=== PATIENT | female | born 1995 | race Hispanic/Latino ===

== ENCOUNTER 2022-04-13 12:41 | Emergency (ER) | payer OTHER ==
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
--- NOTE | 2022-04-13 14:54 | RAD REPORT ---
EXAM DESCRIPTION: RAD - Lumbar Spine 3 Views - 04/13/2022 2:18 pm CLINICAL HISTORY: Back pain FINDINGS: No fracture or dislocation is seen.
--- NOTE | 2022-04-13 14:55 | RAD REPORT ---
EXAM DESCRIPTION: RAD - Shoulder Left 2 View - 04/13/2022 2:18 pm CLINICAL HISTORY: Left shoulder pain FINDINGS: No fracture or dislocation is seen. If the patient continues to have symptoms to suggest an occult fracture follow-up plain film series in 1 week would be recommended
--- NOTE | 2022-04-13 15:05 | ER ---
Nurse's Notes [facility] Name: Rosy David Age: 26 yrs Sex: Female : 1995 Arrival Date: 04/13/2022 Time: 12:43 Bed Waiting Private MD: Diagnosis: Pain in left shoulder;Pain in left hip;Low back pain Presentation: 04/13 13:39 Chief complaint: Patient states: hip/back pain happened yesterday , hurts to walk. iw Coronavirus screen: At this time, the client does not indicate any symptoms associated with coronavirus-19. Ebola Screen: Patient negative for fever greater than or equal to 101.5 degrees Fahrenheit, and additional compatible Ebola Virus Disease symptoms Patient denies exposure to infectious person. Patient denies travel to an Ebola-affected area in the 21 days before illness onset. No symptoms or risks identified at this time. Initial Sepsis Screen: Does the patient meet any 2 criteria? No. Patient's initial sepsis screen is negative. Does the patient have a suspected source of infection? No. Patient's initial sepsis screen is negative. Risk Assessment: Do you want to hurt yourself or someone else? Patient reports no desire to harm self or others. 13:39 Acuity: LUCY 4 iw 13:39 Method Of Arrival: Ambulatory Vital Signs: 13:20 BP 96 / 79; Pulse 91; Resp 16; Temp 98.4; Pulse Ox 100% ; Weight 74.39 kg; Height 5 ft. zm 1 in. (154.94 cm); Pain 7/10; 13:20 Body Mass Index 30.99 (74.39 kg, 154.94 cm) ED Course: 12:43 Patient arrived in ED. mr 13:18 Amy Hernández FNP-C is PHCP. kb 13:18 Lenny Yanez MD is Attending Physician. kb 13:40 Triage completed. iw 14:20 Hip Left 2 View XRAY In Process Unspecified. EDMS 14:20 Shoulder Left (2 View) XRAY In Process Unspecified. EDMS 14:20 Lumbar Spine (3 Views) XRAY In Process Unspecified. EDMS Administered Medications: No medications were administered Outcome: 15:04 Discharge ordered by . kb 15:21 Patient left the ED. kb Signatures: Dispatcher [employer] EDMS Amy Hernández FNP-C PACKAGING LINE ATTENDANT-Ckb Sarah Fung Irene, RN RN Linsey Shoemaker
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
[2022-04-13 15:28] VITALS: BP 96/79; TEMP 98.4; O2SAT 100
== END 2022-04-13 15:21 | disposition home or self-care (01) ==
LOC: ER 12:41
DX: M25.512 Pain in left shoulder (principal); M25.552 Pain in left hip; M54.50 Low back pain, unspecified
CPT/HCPCS: 72100; 99282

== ENCOUNTER 2022-08-09 09:05 | Emergency (ER) | payer BC, OTHER ==
--- OUTSIDE RECORDS SUMMARY | 2022-08-09 09:09 | XMS REPORT | Continuity of Care Document ---
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 code 2+ NEGATIVE A = VICTORINA) UA PH DIPSTICK (test code = 7.5 5.5-7.0 H [place]) UA PROTEIN DIPSTICK (test NEGATIVE mg/dL NEGATIVE code = PROU) UA UROBILINOGEN DIPSTICK 2.0 mg/dL NORMAL (test code = URO) UA NITRITE DIPSTICK (test NEGATIVE NEGATIVE code = ALEXX) UA LEUKOCYTE ESTERASE NEGATIVE NEGATIVE DIPSTICK (test code = LEUU) UA COMMENT (test code = COMU) VOLUME 10-12 ML URINE SPECIMEN DESCRIPTION Clean Catch (test code = UASPEC) UA [id number] 01:27:00 Test Item Value Reference Range Interpretation Comments UA WBC (test code = WBCU) #/hpf <10 UA RBC (test code = RBCU) #/HPF NONE SEEN UA SQUAMOUS CELLS (test code = SQU) #/lpf <100 UA RFLX [id number] 01:27:00 Test Item Value Reference Range Interpretation Comments UA COLOR (test code = COLU) Yellow YELLOW UA APPEARANCE (test code = CLEAR APPU) UA GLUCOSE DIPSTICK (test NORMAL mg/dL NEGATIVE code = DGLUU) UA BILIRUBIN DIPSTICK (test NEGATIVE NEGATIVE code = BILU) UA KETONE DIPSTICK (test code NEGATIVE mg/dL NEGATIVE = KETU) UA SPECIFIC GRAVITY (test 1.016 1.001-1.035 N code = SGU) UA BLOOD DIPSTICK (test code 2+ NEGATIVE A = VICTORINA) UA PH DIPSTICK (test code = 7.5 5.5-7.0 H [place]) UA PROTEIN DIPSTICK (test NEGATIVE mg/dL NEGATIVE code = PROU) UA UROBILINOGEN DIPSTICK 2.0 mg/dL NORMAL (test code = URO) UA NITRITE DIPSTICK (test NEGATIVE NEGATIVE code = ALEXX) UA LEUKOCYTE ESTERASE NEGATIVE NEGATIVE DIPSTICK (test code = LEUU) UA COMMENT (test code = COMU) VOLUME 10-12 ML URINE SPECIMEN DESCRIPTION Clean Catch (test code = UASPEC) UA [id number] 01:27:00 Test Item Value Reference Range Interpretation Comments UA WBC (test code = WBCU) #/hpf <10 UA RBC (test code = RBCU) #/HPF NONE SEEN UA SQUAMOUS CELLS (test code = SQU) #/lpf <100 CBC W/AUTO [id number] 00:59:00 Test Item Value Reference Range Interpretation Comments WHITE BLOOD CELL (test code = 9.77 x10 3/uL 4.80-10.80 N WBC) RED BLOOD CELL (test code = 3.85 x10 6/uL 4.2-5.4 L RBC) HEMOGLOBIN (test code = HGB) 12.8 G/DL 12.0-16.0 N HEMATOCRIT (test code = HCT) 35.8 % 37-47 L MEAN CELL VOLUME (test code = 93.0 FL 81-99 N MCV) MEAN CELL HGB (test code = MCH) 33.2 PG 27-31 H MEAN CELL HGB CONCENTRATION 35.8 G/DL 33-37 N (test code = MCHC) RED CELL DISTRIBUTION WIDTH 12.8 % 11.5-14.5 N (test code = RDW) PLATELET COUNT (test code = 260 x10 3/uL 150-450 N PLT) MEAN PLATELET VOLUME (test code 9.8 FL 7.4-10.4 N = MPV) NEUTROPHIL % (test code = NT%) 63.0 % 42-86 N IMMATURE GRANULOCYTE % (test 0.3 % 0.0-2.0 N code = IG%) LYMPHOCYTE % (test code = LY%) 26.1 % 24-44 N MONOCYTE % (test code = MO%) 9.3 % 0.0-4.0 H EOSINOPHIL % (test code = EO%) 0.9 % 0.0-2.7 N BASOPHIL % (test code = BA%) 0.4 % 0.0-0.5 N NUCLEATED RBC % (test code = 0.0 % 0.0-0.0 N NRBC%) NEUTROPHIL # (test code = NT#) 6.15 x10 3/uL 1.8-7.7 N IMMATURE GRANULOCYTE # (test 0.03 x10 3/uL 0.00-0.03 N code = IG#) LYMPHOCYTE # (test code = LY#) 2.55 x10 3/uL 1.0-4.8 N MONOCYTE # (test code = MO#) 0.91 x10 3/uL 0.0-0.8 H EOSINOPHIL # (test code = EO#) 0.09 x10 3/uL 0.0-0.5 N BASOPHIL # (test code = BA#) 0.04 x10 3/uL 0.0-0.2 N NUCLEATED RBC # (test code = 0.0 X10 3/uL 0.0-0.2 N NRBC#)
[2022-08-09] MEDS ORDERED: KETOROLAC 30 MG/ML INJ ONE (09:40)
--- NOTE | 2022-08-09 09:55 | ER ---
Nurse's Notes [facility] Name: Rosy David Age: 26 yrs Sex: Female : 1995 Arrival Date: 08/09/2022 Time: 09:11 Bed 12 Private MD: Diagnosis: Dental caries, unspecified Presentation: 08/09 09:31 Chief complaint: Patient states: right ear pain x2 weeks with accompanying tooth pain ss on both sides of the mouth. Coronavirus screen: Vaccine status: Patient reports being unvaccinated. Client denies travel out of the [place] in the last 14 days. Ebola Screen: Patient negative for fever greater than or equal to 101.5 degrees Fahrenheit, and additional compatible Ebola Virus Disease symptoms Patient denies exposure to infectious person. Patient denies travel to an Ebola-affected area in the 21 days before illness onset. Initial Sepsis Screen: Does the patient meet any 2 criteria? No. Patient's initial sepsis screen is negative. Does the patient have a suspected source of infection? No. Patient's initial sepsis screen is negative. Risk Assessment: Do you want to hurt yourself or someone else? Patient reports no desire to harm self or others. Onset of symptoms was June 2022. 09:31 Method Of Arrival: Ambulatory ss 09:31 Acuity: LUCY 4 ss Triage Assessment: 09:35 General: Appears uncomfortable, Behavior is calm, cooperative, appropriate for age. ss Pain: Complains of pain in face. EENT: Reports pain. 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 - Social history:: Smoking status: Patient denies any tobacco usage or history of. - Family history:: not pertinent. - Hospitalizations: : No recent hospitalization is reported. Screenin:14 Abuse screen: Denies threats or abuse. Denies injuries from another. Nutritional ld1 screening: No deficits noted. Tuberculosis screening: No symptoms or risk factors identified. Fall Risk None identified. Assessment: 10:14 Reassessment: See triage assessment. ld1 Vital Signs: 09:31 BP 126 / 77; Pulse 86; Resp 16; Temp 98.6; Pulse Ox 99% ; Weight 74.84 kg; Height 5 ft. ss 1 in. (154.94 cm); Pain 4/10; 09:31 Body Mass Index 31.18 (74.84 kg, 154.94 cm) ED Course: 09:11 Patient arrived in ED. mr 09:19 Po Owens MD is Attending Physician. rn 09:35 Triage completed. ss 09:35 Arm band placed on right wrist. ss 10:14 Clarissa Matamoros, RN is Primary Nurse. ld1 10:14 Patient has correct armband on for positive identification. Call light in reach. Pulse ld1 ox on. NIBP on. Door closed. Noise minimized. Warm blanket given. 10:14 No provider procedures requiring assistance completed. Patient did not have IV access ld1 during this emergency room visit. Administered Medications: 09:42 Drug: Ketorolac 30 mg Route: IM; Site: right deltoid; jh5 Medication: 10:14 VIS not applicable for this client. ld1 Outcome: 09:55 Discharge ordered by . rn 10:14 Discharged to home ambulatory. ld1 10:14 Condition: stable 10:14 Discharge instructions given to patient, Instructed on discharge instructions, follow up and referral plans. medication usage, Demonstrated understanding of instructions, follow-up care, medications, Prescriptions given X 2. 10:15 Patient left the ED. ld1 Signatures: Sarah Fung Po Owens MD MD rn Smirch, Shelby, RN RN Clarissa Matamoros RN RN ld1 Nevaeh Farmer RN RN jh5
--- NOTE | 2022-08-09 09:55 | EDPHYS ---
Physician Documentation [facility] Name: Rosy David Age: 26 yrs Sex: Female : 1995 Arrival Date: 08/09/2022 Time: 09:11 Bed 12 Private MD: ED Physician Po Owens HPI: 08/09 09:41 This 26 yrs old Female presents to ER via Ambulatory with complaints of Ear rn Pain. 09:41 The patient presents with pain. The problem is located in the dental pain. Onset: The rn symptoms/episode began/occurred 2 week(s) ago. Duration: The symptoms are continuous, and are unchanged since they started. Modifying factors: The symptoms are alleviated by nothing, the symptoms are aggravated by nothing. Associated signs and symptoms: Pertinent positives: pain, Pertinent negatives: dysphagia, fever, redness in area, swelling. Severity of symptoms: At their worst the symptoms were moderate, in the emergency department the symptoms are unchanged. The patient has experienced similar episodes in the past. The patient has not recently seen a physician. No injury, + dental pain, no swelling, no difficulty breathing or swallowing. . 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 - Social history:: Smoking status: Patient denies any tobacco usage or history of. - Family history:: not pertinent. - Hospitalizations: : No recent hospitalization is reported. ROS: 09:41 Constitutional: Negative for fever, chills, and weight loss, Eyes: Negative for injury, rn pain, redness, and discharge, ENT: + dental pain Cardiovascular: Negative for chest pain, palpitations, and edema, Respiratory: Negative for shortness of breath, cough, wheezing, and pleuritic chest pain, Abdomen/GI: Negative for abdominal pain, nausea, vomiting, diarrhea, and constipation, Skin: Negative for injury, rash, and discoloration, Neuro: Negative for headache, weakness, numbness, tingling, and seizure. Exam: 09:41 Constitutional: This is a well developed, well nourished patient who is awake, alert, rn and in no acute distress. Head/Face: Normocephalic, atraumatic. ENT: + poor dentition, no oral swelling, no stridor, no abscess Neck: Trachea midline, no thyromegaly or masses palpated, and no cervical lymphadenopathy. Supple, full range of motion without nuchal rigidity, or vertebral point tenderness. No Meningismus. Cardiovascular: Regular rate and rhythm. No pulse deficits. Respiratory: No increased work of breathing, no retractions or nasal flaring. Vital Signs: 09:31 BP 126 / 77; Pulse 86; Resp 16; Temp 98.6; Pulse Ox 99% ; Weight 74.84 kg; Height 5 ft. ss 1 in. (154.94 cm); Pain 4/10; 09:31 Body Mass Index 31.18 (74.84 kg, 154.94 cm) ss MDM: 09:19 Patient medically screened. rn 09:41 Differential diagnosis: dental caries, gingivitis. Data reviewed: vital signs, nurses rn notes, and as a result, I will discharge patient. Counseling: I had a detailed discussion with the patient and/or guardian regarding: the historical points, exam findings, and any diagnostic results supporting the discharge/admit diagnosis, the need for outpatient follow up, to return to the emergency department if symptoms worsen or persist or if there are any questions or concerns that arise at home. Special discussion: I discussed with the patient/guardian in detail that at this point there is no indication for admission to the hospital. It is understood, however, that if the symptoms persist or worsen the patient needs to return immediately for re-evaluation. Based on the history and exam findings, there is no indication for further emergent testing or inpatient evaluation. I discussed with the patient/guardian the need to see a dentist for further evaluation of the symptoms. 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
[2022-08-09 10:35] VITALS: BP 126/77; TEMP 98.6; O2SAT 99
== END 2022-08-09 10:15 | disposition home or self-care (01) ==
LOC: ER 09:05
DX: K02.9 Dental caries, unspecified (principal)
CPT/HCPCS: 96372; 99283

== ENCOUNTER 2024-11-29 19:35 | Emergency (ER) | payer SELFPAY ==
--- OUTSIDE RECORDS SUMMARY | 2024-11-29 19:39 | XMS REPORT | Continuity of Care Document ---
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 Focused Review of Systems Skin Reports: Abrasion (LEFT 3RD MCP). Past Medical History - Adult Stated Complaint LEFT HAND INJURY Allergies Coded Allergies: No Known Allergies (11/25/19) Home Medications Active Scripts NAPROXEN (NAPROSYN) 500 MG PO BID PRN PRN PAIN NAPROXEN (NAPROSYN) 500 MG PO BID PRN PRN PAIN #20 TABS Prov: 10/18/20 OSELTAMIVIR (TAMIFLU) 75 MG PO BID OSELTAMIVIR (TAMIFLU) 75 MG PO BID #10 CAPS Prov: 09/01/21 ACETAMINOPHEN (TYLENOL) 500 MG PO Q6H PRN PRN fever ACETAMINOPHEN (TYLENOL) 500 MG PO Q6H PRN PRN fever #20 TABS Prov: 09/01/21 IBUPROFEN (ADVIL) 400 MG PO Q6H 5 Days #20 TABS Prov: 09/01/21 HYDROcodone/APAP (NORCO 7.5/325) 1 TAB PO Q6H PRN PRN BREAKTHROUGH PAIN HYDROcodone/APAP (NORCO 7.5/325) 1 TAB PO Q6H PRN PRN BREAKTHROUGH PAIN #14 TAB Prov: 11/25/19 IBUPROFEN (MOTRIN) 600 MG PO Q6HR IBUPROFEN (MOTRIN) 600 MG PO Q6HR #30 TAB Prov: 11/25/19 Reported Medications [pnv] Review of Nursing Notes Rev avail, and agree Additional Medical History RA CHRONIC CONSTIPATION Alcohol Use Alcohol use Drug Use Denies recreational drugs Physical Exam Vital Signs Vital Signs First Documented: Result Date Time Pulse Ox 99 10/27 2155 B/P 123/73 10/27 2155 B/P Mean 89 10/27 2155 O2 Delivery Room air 10/27 2155 Temp 98.9 10/27 2155 Pulse 102 10/27 2155 Resp 18 10/27 2155 Last Documented: Result Date Time Pulse Ox 99 10/27 2155 B/P 123/73 10/27 2155 B/P Mean 89 10/27 2155 O2 Delivery Room air 10/27 2155 Temp 98.9 10/27 2155 Pulse 102 10/27 2155 Resp 18 10/27 2155 Review of Vital Signs Reviewed, Vital signs normal Focused PE General/Const General/Const Awake, Alert, No acute distress, Well appearing, Well developed , Well hydrated, Well nourished, Cooperative, Not toxic appearing MS Wrist/Hand Left Wrist Swelling present, Tenderness present, Ecchymosis present. Left Hand Swelling present, Tenderness present, Ecchymosis present, ROM reduced (MILD). Skin Trauma/Burn/Environmental Abrasion (LEFT 3RD MCPJ), Contusion, Ecchymosis ( LEFT 2/3/4 MCP JOINTS) Neurologic Neurologic Oriented X3, Speech NL, No motor deficits, No sensory deficits, Memory NL, Gait NL Additional PE Resp/Chest Respiratory/Chest Atraumatic, Breath sounds NL, Breath sounds = bilat, No respiratory distress Chest Wall/Ribs Chest tender upper R (RIGHT UPPER LATERAL). Cardiovascular Cardiovascular Heart rate NL, Regular rhythm, Heart sounds NL MS Upper Extrem Upper Extremity/MS Atraumatic, Inspection NL, Full range of motion, No swelling, No deformity Interpretation Diagnostics Lab Results Interpretation Results Recent Impressions: RADIOLOGY - XR CHEST 1 V 10/27 2237 Report Impression - Status: SIGNED Entered: 10/27/20212257 IMPRESSION: No evidence of acute cardiopulmonary disease. Impression By: Clarita Givens MD RADIOLOGY - XR HAND 3+V LT 10/27 2237 Report Impression - Status: SIGNED Entered: 10/27/20212301 Impression: Unremarkable exam. Impression By: Luz Elena Burroughs MD RADIOLOGY - XR WRIST 3+V LT 10/27 2237 Report Impression - Status: SIGNED Entered: 10/27/20212299 IMPRESSION: No evidence of acute osseous abnormality or joint derangement. The lateral radiograph of the hand demonstrates a superficial hyperdensity within the dorsal soft tissues at the level of the metacarpal phalangeal joint which may represent an artifact. Correlate to exclude a foreign body. Impression By: Clarita Givens MD Lab Imaging Statement Laboratory radiographic studies reviewed and considered in the medical decision-making. Re-Evaluation MDM ED Course Medication(s) Ordered Medication(s) Ordered: Central Nervous System Agents Sig/Fernando Start time Last Medication Dose Route Stop Time Status Admin Ibuprofen 600 MG X1ED STA 10/27 2155 DC 10/27 PO 10/27 Patient Discharge Departure Vital Signs/Condition Vital Signs First Documented: Result Date Time Pulse Ox 99 10/27 2155 B/P 123/73 10/27 2155 B/P Mean 89 10/27 2155 O2 Delivery Room air 10/27 2155 Temp 98.9 10/27 2155 Pulse 102 10/27 2155 Resp 18 10/27 2155 Last Documented: Result Date Time Pulse Ox 99 10/27 2155 B/P 123/73 10/27 2155 B/P Mean 89 10/27 2155 O2 Delivery Room air 10/27 2155 Temp 98.9 10/27 2155 Pulse 102 10/27 2155 Resp 18 10/27 2155 All vital signs available at the time of this entry have been reviewed. Clinical Impression Clinical Impression Primary Impression: Contusion of left hand including fingers Secondary Impressions: Contusion of right shoulder, Left wrist sprain Disposition Decision Discharge )( Discharged to Home Yes )( Time 2307 )( Date 10/27/21 Discharge/Care Plan Counseled Regarding Diagnosis, Imaging studies, Need for follow-up, When to return to ED Patient Instructions ED Hand Contusion Additional Instructions Use ice and ibuprofen and Tylenol as needed for pain and swelling. X-rays did not show any fractures or dislocations. at 2309 RPT #:[id number] END OF REPORT [facility] 2021-09-01 18:11:00 [facility]Y PROVIDER REPORT REPORT#:[id number] REPORT STATUS: Signed DATE:09/01/21 TIME: 1810 PATIENT: ROSY BLACK UNIT #: [id number] ROOM/BED: AGE: 26 SEX: F PCP PHYS: No Primary or Family Physician SERVICE AUTHOR: Jacinto Bailey MD * ALL edits or amendments must be made on the electronic/computer document * HPI-Sore Throat Free Text HPI Notes Free Text HPI Notes 26-year-old female with no significant past medical history, none immunized with COVID-19 vaccine, presented today complaining of 24 hours of sore throat, dysphagia, dysphonia, fatigue, feeling tired, cough, runny nose, for which consulted to emergency department, the patient denies shortness of breath, denies loss of smell, denies loss of taste, denies diarrhea. The patient stated she does feel fever chills. General Confirmed Patient Yes Patient Type New patient Initial Greet Date/Time 09/01/21 1750 Presentation Chief Complaint Sore throat Review of Systems Free Text ROS Notes Free Text ROS Notes Constitutional: Positive for fever, chills HENT: Negative for ear pain, positive sore throat Eyes: Negative for pain and visual disturbance. Respiratory: Positive for cough, negative chest tightness and shortness of breath. Cardiovascular: Negative for chest pain, palpitations nor leg swelling. Gastrointestinal: Negative for nausea, vomiting, abdominal pain nor diarrhea. Endocrine: Negative for polydipsia nor polyuria. Genitourinary: Negative for dysuria nor hematuria. Musculoskeletal: Negative for back pain, neck pain, nor extremity pain. Skin: Negative for pallor, rash. Neurological: Negative for dizziness, seizures, weakness and headaches. Psychiatric/Behavioral: Negative for behavioral problems, confusion and agitation. No suicidal ideation, no homicidal ideation, no hallucinations, no delusions. Past Medical History - Adult Stated Complaint CHILLS,BAD COUGH,HEAD POUNDING,DIZZY SPELLS,ACHES Allergies Coded Allergies: No Known Allergies (11/25/19) Home Medications Active Scripts NAPROXEN (NAPROSYN) 500 MG PO BID PRN PRN PAIN NAPROXEN (NAPROSYN) 500 MG PO BID PRN PRN PAIN #20 TABS Prov: 10/18/20 HYDROcodone/APAP (NORCO 7.5/325) 1 TAB PO Q6H PRN PRN BREAKTHROUGH PAIN HYDROcodone/APAP (NORCO 7.5/325) 1 TAB PO Q6H PRN PRN BREAKTHROUGH PAIN #14 TAB Prov: 11/25/19 IBUPROFEN (MOTRIN) 600 MG PO Q6HR IBUPROFEN (MOTRIN) 600 MG PO Q6HR #30 TAB Prov: 11/25/19 Reported Medications [pnv] Additional Medical History RA CHRONIC CONSTIPATION Alcohol Use Alcohol use Drug Use Denies recreational drugs Physical Exam Vital Signs Vital Signs First Documented: Result Date Time Pulse Ox 99 / 1802 B/P 118/60 / 1802 B/P Mean 79 09/01 1802 Temp 100.6 / 1802 Pulse 108 / 1802 Last Documented: Result Date Time Pulse Ox 99 12/ 1802 B/P 118/60 / 1802 B/P Mean 79 / 1802 Temp 100.6 / 1802 Pulse 108 12/ 1802 Review of Vital Signs Reviewed Free Text PE Notes Free Text PE Notes Constitutional: oriented to person, place, and time. appears well-developed and well-nourished. Non toxic appearing. Head: Normocephalic and atraumatic. ENT: Bilateral Tympanic membranes are normal, non-erythematous. Bilateral Ear canal normal without erythema or pain. Mouth/Throat: Uvula is midline, oropharynx is erythematous and moist and mucous membranes are normal. With hoarseness Eyes: Conjunctivae and EOM are normal. PERRL Neck: Neck supple, no JVD, No Midline tenderness, no meningismus Cardiovascular: Normal heart rate, regular rhythm, normal heart sounds and normal pulses. No Murmurs, Gallops, Rubs. Pulses: Radial pulses are 2+ on the right side, and 2+ on the left side. Dorsalis pedis pulses are 2+ on the right side, and 2+ on the left side. Pulmonary/Chest: Clear to auscultation Bilateral, effort normal with no retractions. Abdominal: Soft. Normal appearing. Normal bowel sounds. Non-tender. Musculoskeletal: Normal range of motion. Neurological: alert and oriented to person, place, and time. normal strength. No cranial nerve deficit or sensory deficit. GCS eye subscore is 4. GCS verbal subscore is 5. GCS motor subscore is 6. Skin: Skin is warm, dry and intact. Interpretation Diagnostics Lab Results Interpretation Results Laboratory Tests: 09/01 1804 Serology SARS-CoV-2 Ag (Rapid) (Negative) NEGATIVE Microbiology: Date/Time Procedure - Status Source Growth 09/01 1804 Group A Streptococcus Screen (MERCED) - COMP THROAT 09/01 1804 Throat Culture - COMP THROAT 09/01 1804 Influenza Virus Type B Antigen - COMP NASOPHARG 09/01 1804 Influenza Virus Type A Antigen - COMP NASOPHARG Re-Evaluation MDM ED Course Medication(s) Ordered Medication(s) Ordered: Central Nervous System Agents Sig/Fernando Start time Last Medication Dose Route Stop Time Status Admin Acetaminophen 1,000 MG X1ED STA 09/01 182 DC 09/01 PO 09/01 1825 1857 Patient Discharge Departure Vital Signs/Condition Vital Signs First Documented: Result Date Time Pulse Ox 99 09/01 1802 B/P 118/60 09/01 1802 B/P Mean 79 09/01 1802 Temp 100.6 09/01 1802 Pulse 108 / 1802 Last Documented: Result Date Time Pulse Ox 99 09/01 1802 B/P 118/60 09/01 1802 B/P Mean 79 / 1802 Temp 100.6 / 1802 Pulse 108 / 1802 All vital signs available at the time of this entry have been reviewed. Condition Stable, Improved Clinical Impression Clinical Impression Primary Impression: Influenza A Disposition Decision Discharge )( Discharged to Home Yes )( Time 1856 )( Date 09/01/21 COVID-19 Discharge Plan CDC Criteria Met for Testing Yes Test Performed Yes, result negative CDC Recom for Isol Retest https://www.cdc.gov/coronavirus/-ncov/infection-control/control- recommendations.html Discharge/Care Plan Counseled Regarding Diagnosis, Lab results, Prescriptions, Need for follow-up, When to return to ED Rx Drug Database Reviewed Yes Prescriptions Tamiflu, acetaminophen, ibuprofen (Auto) Prescriptions Current Visit Scripts OSELTAMIVIR (TAMIFLU) 75 MG PO BID OSELTAMIVIR (TAMIFLU) 75 MG PO BID #10 CAPS TAKE FOR 5 DAYS. ACETAMINOPHEN (TYLENOL) 500 MG PO Q6H PRN PRN fever ACETAMINOPHEN (TYLENOL) 500 MG PO Q6H PRN PRN fever #20 TABS Follow label instructions for pain or fever. IBUPROFEN (ADVIL) 400 MG PO Q6H 5 Days #20 TABS Take as directed on label. Prescriptions Reviewed Risks, Benefits, Alternative treatment Patient Instructions ED Influenza (Adult) Additional Instructions Please take the medication as prescribed. Please follow-up with primary care physician in 3 to 5 days. If not better or getting worse please return to the emergency department or call [phone] ADDITIONAL INSTRUCTIONS: The examination and treatment that you received today was on an emergency basis only and is not intended as an effort to provide complete medical care. It is impossible to recognize and treat all elements of an illness or injury in a single ED visit. Keep in mind that all x-rays, CTs, MRIs, and ultrasounds read after hours may be over-read the following day by the staff radiologist. Do not drive after taking narcotics, sedatives, or other medications that may cause sedation. Thank you for allowing us to provide emergent medical care to you or your family member. We consider it a privilege to have served you during your illness or injury. If you have no insurance and live in [facility], you may qualify for [facility]. Call to sign up and/or call for a list of requirements. For scheduling [email or web address] call . If you live in [facility] and do not qualify for [facility], contact: Benjamín Kiran [address] [place] [address], [address], [place], [place] If you live in [facility] and have no insurance, you may be able to be seen at the [facility] health department located at [address] [place] [address]. Call to see if you qualify and/or to schedule an appointment. [facility]: [facility]: [address], [address], [place], [place] [facility] Mobile [facility]: [address], [address], [place], [place]: [address] [facility]: [address] [place], [place]: [address], [place], [place]: [address], [address], [place], [place] Referrals PRIMARY CARE: 2-3 Days Departure Forms ABNORMAL LABS Advance Care Planning Documents Reviewed With patient Discharge Note I have spoken with the patient and/or caregivers. I have explained the patient's condition, diagnoses and treatment plan based on the information available to me at this time. I have answered the patient's and/or caregiver's questions and addressed any concerns. The patient and/or caregivers have as good an understanding of the patient's diagnosis, condition and treatment plan as can be expected at this point. The vital signs have been stable. The patient's condition is stable and appropriate for discharge from the emergency department. The patient will pursue further outpatient evaluation with the primary care physician or other designated or consulting physician as outlined in the discharge instructions. The patient and/or caregivers are agreeable to this plan of care and follow-up instructions have been explained in detail. The patient and/or caregivers have received these instructions in written format and have expressed an understanding of the discharge instructions. The patient and/or caregivers are aware that any significant change in condition or worsening of symptoms should prompt an immediate return to this or the closest emergency department or a call to 911. Quality Measures BP F/U for HTN F/u with PCP/other doc at 1600 RPT #:[id number] END OF REPORT [facility] 2020-10-18 21:17:00 [facility] EM[facility]GENCY PROVIDER REPORT REPORT#:[id number] REPORT STATUS: Signed DATE:10/18/20 TIME: 2116 PATIENT: ROSY BLACK UNIT #: [id number] ROOM/BED: AGE: 25 SEX: F PCP PHYS: No Primary or Family Physician SERVICE AUTHOR: Bennie Caldwell MD * ALL edits or amendments must be made on the electronic/computer document * HPI-Abd Pain F Under 40 General Confirmed Patient Yes Patient Type New patient Initial Greet Date/Time 10/18/202113 Assumed Care at Time 2113 Presentation Chief Complaint Abdominal pain Hx Obtained From Patient Sudden in Onset? 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 Patient tells me that she has been having this pain for a week. It is constant with some intermittent increase in intensity. Pain is on the lower abdomen/ suprapubic area but more so on the right. Patient relates a history of ovarian cyst. Associated symptoms include vaginal discharge that is brownish according to patient that she sees in her panties however she did not have to put a liner or pad. She is sexually active. She has two children age 33 years old and [id number]. She denies history of STDs in the past. She has no fevers no chills no nausea no vomiting. She did notice a little frequency of her urination but no dysuria no urgency and no hematuria. She does have her menstrual period last week, and thought that her pelvic pain was related to her period. She also suffers from constipation and she has to takes clug-evn-foiydyx agents for it, henceforth she also states that because of her chronic constipation she gets hemorrhoids once in a while. Risk-Abd Pain F Under 40 )( Ectopic Risk factors reviewed Review of Systems ROS Statements All systems rev neg except as marked. Focused Review of Systems Constitutional Denies: Chills, Fatigue, Fever, Lethargy, Malaise, Recent wt loss, Weakness - generalized. Respiratory Denies: Cough, non-productive, Cough, productive, Dyspnea on exertion, Hemoptysis, Parox nocturnal dyspnea, Pleuritic pain, Shortness of breath, Wheezing. Cardiovascular Denies: Chest pain, Dyspnea on exertion, Edema, Orthopnea, Palpitations, Parox nocturnal dyspnea, Syncope. GI Denies: Nausea, Vomiting. Female Reports: Pelvic pain, Urinary frequency, Vaginal discharge. Denies: Dysuria, Flank pain, Hematuria, Nocturia, , Urinary urgency, Urination decreased, Urination increased, Vaginal bleeding - abnl. Past Medical History - Adult Stated Complaint OVARY ISSUES Allergies Coded Allergies: No Known Allergies (11/25/19) Home Medications Active Scripts HYDROcodone/APAP (NORCO 7.5/325) 1 TAB PO Q6H PRN PRN BREAKTHROUGH PAIN HYDROcodone/APAP (NORCO 7.5/325) 1 TAB PO Q6H PRN PRN BREAKTHROUGH PAIN #14 TAB Prov: 11/25/19 IBUPROFEN (MOTRIN) 600 MG PO Q6HR IBUPROFEN (MOTRIN) 600 MG PO Q6HR #30 TAB Prov: 11/25/19 Reported Medications [pnv] Additional Medical History RA CHRONIC CONSTIPATION Alcohol Use Alcohol use Drug Use Denies recreational drugs Physical Exam Vital Signs Vital Signs First Documented: Result Date Time Pulse Ox 100 10/18 2114 B/P 124/72 10/18 2114 B/P Mean 89 10/18 2114 O2 Delivery Room air 10/18 2114 Temp 37.3 10/18 2114 Pulse 76 10/18 2114 Resp 16 10/18 2114 Last Documented: Result Date Time Pulse Ox 100 10/18 2114 B/P 124/72 10/18 2114 B/P Mean 89 10/18 2114 O2 Delivery Room air 10/18 2114 Temp 37.3 10/18 2114 Pulse 76 10/18 2114 Resp 10/18 Review of Vital Signs Reviewed, Vital signs normal Focused PE General/Const General/Const Awake, Alert, No acute distress, Well appearing, Well developed , Well hydrated, Well nourished, Cooperative, Not toxic appearing Eyes Eyes No scleral icterus, Conjunctiva NL Resp/Chest Respiratory/Chest Breath sounds NL, Breath sounds = bilat, No respiratory distress, No rales, No rhonchi, No wheezing, No retractions, No stridor, No chest tenderness, No chest wall deformity, No crepitus Cardiovascular Cardiovascular Heart rate NL, Regular rhythm, Heart sounds NL, No gallop, No murmurs, No rubs, Cap refill not delayed, Peripheral circulation NL, Pulses = bilaterally Abdomen/GI Abdomen/GI Soft, Non-tender, McBurney's non-tender, No guarding, No rebound, BS normoactive, No distention, No palpable mass, No pulsatile mass MS Back Back Inspection NL, No CVA tenderness Genitourinary [employer] present Text/Dict Notes Has no lesion on the labia majora or labia minora. Vaginal canal with no wall lesions or Janna lesions. Cervix with no lesions, the os is round (both pregnancies ended up with section) . Brownish/whitish discharge through the os. Moderate cervical motion tenderness. Pelvic Exam Cervical motion tend. Negative: Cervical lesions pres, Cervix hyperemic, IUD present, Os is open, Adnexal mass R, Adnexal mass L, Uterus enlarged. Interpretation Diagnostics Lab Results Interpretation Results Laboratory Tests 10/18/202139: [Embedded Image Not Available] Laboratory Tests: 10/18 Chemistry Sodium (133 - 145 MMOL/L) 140 Potassium (3.6 - 5.2 MMOL/L) 3.8 Chloride (100 - 108 MMOL/L) 105 Carbon Dioxide (22 - 32 MMOL/L) 25 BUN (6 - 20 MG/DL) 14 Creatinine (0.60 - 1.00 MG/DL) 0.91 Estimated GFR (MDRD) (71 - 165) 76 Glucose (65 - 99 MG/DL) 89 Calcium (8.7 - 10.5 MG/DL) 9.0 Hematology WBC (4.80 - 10.80 x10 3/uL) 6.80 RBC (4.2 - 5.4 x10 6/uL) 4.22 Hgb (12.0 - 16.0 G/DL) 12.8 Hct (37 - 47 %) 41.8 MCV (81 - 99 FL) 99.1 H MCH (27 - 31 PG) 30.3 MCHC (33 - 37 G/DL) 30.6 L RDW Coeff of Ino (11.5 - 14.5 %) 12.8 Plt Count (150 - 450 x10 3/uL) 267 MPV (7.4 - 10.4 FL) 10.6 H Neut % (Auto) (42 - 86 %) 51.8 Lymph % (Auto) (24 - 44 %) 36.2 [place] % (Auto) (0.0 - 4.0 %) 11.0 H Eos % (Auto) (0.0 - 2.7 %) 0.7 Baso % (Auto) (0.0 - 0.5 %) 0.3 Eos # (Auto) (0.0 - 0.5 x10 3/uL) 0.05 Baso # (Auto) (0.0 - 0.2 x10 3/uL) 0.02 Absolute Neuts (auto) (1.8 - 7.7 x10 3/uL) 3.52 Absolute Lymphs (auto) (1.0 - 4.8 x10 3/uL) 2.46 Absolute Monos (auto) (0.0 - 0.8 x10 3/uL) 0.75 Urines Ur Spec Description Clean Catch Urine Color (YELLOW) YELLOW Urine Appearance (CLEAR) CLEAR Urine pH (5.5 - 7.0) 7.0 Ur Specific [place] (1.001 - 1.035) 1.005 Urine Protein (NEGATIVE mg/dL) NEGATIVE Urine Glucose (UA) (NEGATIVE mg/dL) NEGATIVE Urine Ketones (NEGATIVE mg/dL) NEGATIVE Urine Blood (NEGATIVE) NEGATIVE Urine Nitrite (NEGATIVE) NEGATIVE Urine Bilirubin (NEGATIVE) NEGATIVE Urine Urobilinogen (NORMAL mg/dL) NORMAL Ur Leukocyte Esterase (NEGATIVE) NEGATIVE Urine HCG, Qual (NEGATIVE) NEGATIVE Urine Comment VOLUME 10-12 ML Microbiology: Date/Time Procedure - Status Source Growth 10/18 2237 Wet Prep - COMP VAGINAL 10/18 2237 Chlamydia/GC DNA (BHUPENDRA) - RECD CERVIX Re-Evaluation MDM )( Re-Evaluation/Progress #1 )( Re-Eval Status Improved ED Course Medication(s) Ordered Medication(s) Ordered: Anti-Infective Agents Sig/Fernando Start time Last Medication Dose Route Stop Time Status Admin Azithromycin 1,000 MG X1ED STA 10/18 2238 DCr 10/18 PO 10/18 Ceftriaxone Sodium 500 MG X1ED STA 10/18 2238 DC 10/18 IM 10/18 2239 224 Central Nervous System Agents Sig/Fernando Start time Last Medication Dose Route Stop Time Status Admin Acetaminophen 1,000 MG X1ED STA 10/18 2237 DC 10/18 PO 10/18 Ketorolac 30 MG X1ED STA 10/18 2237 DC 10/18 Tromethamine IV 10/18 Patient Discharge Departure Vital Signs/Condition Vital Signs First Documented: Result Date Time Pulse Ox 100 01/19 2115 B/P 124/72 10/18 2114 B/P Mean 89 10/18 2114 O2 Delivery Room air 10/18 2114 Temp 37.3 10/18 2114 Pulse 76 10/18 2114 Resp 16 10/18 2114 Last Documented: Result Date Time Pulse Ox 100 10/18 2114 B/P 124/72 10/18 2114 B/P Mean 89 10/18 2114 O2 Delivery Room air 10/18 2114 Temp 37.3 10/18 2114 Pulse 76 10/18 2114 Resp 16 10/18 2114 All vital signs available at the time of this entry have been reviewed. Condition Stable Clinical Impression Clinical Impression Primary Impression: Pelvic pain in female Secondary Impressions: POSSIBLE OVARIAN CYST, POSSIBLE STD, Vaginal discharge Time of Impression 2240 Disposition Decision Discharge )( Discharged to Home Yes )( Time 2243 )( Date 10/18/20 Discharge/Care Plan Counseled Regarding Diagnosis, Lab results, When to return to ED, Need US of pelvis to r/o ovarian issues (Auto) Prescriptions Current Visit Scripts NAPROXEN (NAPROSYN) 500 MG PO BID PRN PRN PAIN NAPROXEN (NAPROSYN) 500 MG PO BID PRN PRN PAIN #20 TABS Patient Instructions ED Pelvic Pain, Unknown Cause Additional Instructions Warm packs Naprosyn and/or Tylenol as needed for pain You received an IM injection of Rocephin and high-dose of azithromycin that should be enough if this is a pelvic inflammatory disease. As we discussed, awaiting the results of STD tests abstain from sexual activity until the test is back. If it turns out that he have an STD then you can order her to be treated adequately before resuming sexual activity. Call your [facility] in the morning to arrange for an ultrasound to rule out ovarian etiology. Return to the ED with any complications or concerns Discharge Note Patient's presented with pelvic pain for a week, pain is kind of constant and mild however it has intermittent increasing intensity. Patient thought the pelvic pain was related to her menstrual period however after the period is gone , she still gets pain. Patient reports vaginal discharge which is brownish but no history of STD. She is 2 para 2 with a deliveries via . Evaluation in the ED today, her exam showed a mild tenderness on suprapubic area and lower abdominal areas. Pelvic exam she does have a slight discharge through the os with the moderate cervical motion tenderness. But no lesion on the cervix. Her labs are reassuring for a significant infection. We will go ahead and treat the patient's for STDs empirically while awaiting for test results to come back. Offered the a pelvic ultrasound for patient's, however the ultrasound is not available in this freestanding emergency room, [facility] to [facility] or Drs. Alejo for this. Patients want to go home to her children and she will call her [facility] in the morning to arrange for an ultrasound as an outpatient. Patient felt better with the ED treatments, and she wants to go home. at 0216 RPT #:[id number] END OF REPORT [facility] 2019-11-27 07:23:00 [facility] OB Postpart Progr Note REPORT#:[id number] REPORT STATUS: Signed DATE:11/27/19 TIME: 722 PATIENT: ROSY BLACK UNIT #: [id number] ROOM/BED: Y255-1 : 96 AGE: 24 SEX: F ATTEND: Chip Palma MD ADM AUTHOR: Chip Palma MD * ALL edits or amendments must be made on the electronic/computer document * Subjective Subjective Status/Day: post operative (day 2), Repeat c/s Patient reports: Patient reports: Yes pain management effective, Yes tolerating po well, Yes voiding well, Yes tolerating ambulation, Yes flatus Objective Nursing Documentation Review Nursing Data: The data set between the solid lines has been imported from nursing documentation. Any exceptions have been noted below under Provider comments. Feeding preference: Provider comments on imported nursing data: [] General VS: Vital Signs: Date Time Temp Pulse Resp B/P B/P Pulse O2 O2 Flow FiO2 Mean Ox Delivery Rate 11/26 1600 98.7 85 20 97/55 11/26 1224 98.3 92 18 104/56 11/26 0728 98.3 86 16 /47 Patient Weight Weight (lb): 175 Weight (oz): Weight (kg): 79.379 Physical Exam Neuro: Exam: alert, oriented x3, normal speech Abdomen: soft, no abnormal tenderness Incision site: well approximated edges, dry Uterus: involution appropriate, non-tender Lochia: normal Result Findings/Data: Laboratory Tests 11/25 11/26 1500 0740 Hematology WBC (4.80 - 10.80 x10 3/uL) 9.42 RBC (4.2 - 5.4 x10 6/uL) 3.71 Hgb (12.0 - 16.0 G/DL) 10.3 9.4 Hct (37 - 47 %) 31.1 29.2 MCV (81 - 99 FL) 83.8 MCH (27 - 31 PG) 27.8 MCHC (33 - 37 G/DL) 33.1 32.2 RDW Coeff of Ino (11.5 - 14.5 %) 13.3 Plt Count (150 - 450 x10 3/uL) 236 MPV (7.4 - 10.4 FL) 11.1 Neut % (Auto) (42 - 86 %) 77.9 Lymph % (Auto) (24 - 44 %) 13.9 [place] % (Auto) (0.0 - 4.0 %) 7.4 Eos % (Auto) (0.0 - 2.7 %) 0.2 Baso % (Auto) (0.0 - 0.5 %) 0.2 Eos # (Auto) (0.0 - 0.5 x10 3/uL) 0.02 Baso # (Auto) (0.0 - 0.2 x10 3/uL) 0.02 Abs Immat Gran (auto) (0.00 - 0.03 x10 3/uL) 0.04 Absolute Neuts (auto) (1.8 - 7.7 x10 3/uL) 7.33 Absolute Lymphs (auto) (1.0 - 4.8 x10 3/uL) 1.31 Absolute Monos (auto) (0.0 - 0.8 x10 3/uL) 0.70 Absolute Nucleated RBC (0.0 - 0.2 X10 3/uL) 0.0 Immature Gran % (0.0 - 2.0 %) 0.4 Nucleated RBC % (0.0 - 0.0 %) 0.0 Laboratory Tests: Results: labs reviewed, vitl signs stable Diagnosis, Assessment Plan Diagnosis, Assessment Plan Problem List/A P: 1. Maternal care for low transverse scar from previous delivery 2. Onset (spontaneous) of labor after 37 completed weeks of gestation but before 39 completed weeks gestation, with delivery by (planned) section 3. Single live 4. 38 weeks gestation of Assessment: nml progress, nutrit. defiency anemia Plan: routine care, discharge today (with baby) at 0725 RPT #:[id number] END OF REPORT [facility] 2019-11-26 07:59:00 [facility] OB Postpart Progr Note REPORT#:[id number] REPORT STATUS: Signed DATE:11/26/19 TIME: 075 PATIENT: ROSY BLACK UNIT #: [id number] ROOM/BED: Y255-1 : 96 AGE: 24 SEX: F ATTEND: Chip Palma MD ADM AUTHOR: Chip Palma MD * ALL edits or amendments must be made on the electronic/computer document * Subjective Subjective Status/Day: post operative (day 1), Repeat c/s Patient reports: Patient reports: Yes pain management effective Objective Nursing Documentation Review Nursing Data: The data set between the solid lines has been imported from nursing documentation. Any exceptions have been noted below under Provider comments. Feeding preference: Provider comments on imported nursing data: [] General VS: Vital Signs: Date Time Temp Pulse Resp B/P B/P Pulse O2 O2 Flow FiO2 Mean Ox Delivery Rate 11/26 0435 97.9 83 18 109/53 11/26 0040 80 18 120/57 11/25 191 73 98 11/25 191 80.0 11/25 191 81 113/58 11/25 191 94 100 11/25 1907 89 100 11/25 1902 92 100 11/25 190 82.0 11/25 190 93 103/69 11/25 1857 90 99 11/25 1852 88 99 11/25 184 81 100 11/25 1846 70.0 11/25 184 75 97/55 11/25 1845 97.7 11/25 1844 66 94 11/25 1842 82 100 11/25 1837 75 100 11/25 1832 82 99 11/25 1828 93 93 11/25 1827 97 99 11/25 1826 76.0 11/256 67 105/55 11/25 1822 68 100 11/25 1821 76.0 11/25 1821 75 104/55 92 11/25 1816 72.0 11/25 1816 79 99/54 99 11/25 1815 74 94 11/25 1810 75.0 11/25 1811 73 99/58 99 11/25 1806 71.0 11/25 1806 70 100/55 100 11/25 1802 78.0 11/25 1802 85 104/65 11/25 1801 82 99 11/25 1800 97.8 11/25 1757 83.0 11/25 1757 81 124/75 11/25 1756 81 99 11/25 1754 88 92 11/25 1751 72.0 11/25 1751 78 100/57 99 11/25 1747 68.0 11/25 1747 87 93/50 11/25 1746 94 100 11/25 1741 68.0 11/25 1741 74 96/51 100 11/25 1736 71.0 11/25 1736 76 95/52 100 11/25 1734 99 92 11/25 1731 70.0 11/25 1731 76 93/51 100 11/25 1726 75.0 11/25 1726 78 105/52 100 11/25 1723 94 91 11/25 1721 74.0 11/25 1721 96 100/60 100 11/25 1718 94 93 11/25 1716 74.0 11/25 1716 77 105/51 99 11/25 1712 73.0 11/25 1712 77 103/56 11/25 1711 79 100 11/25 1707 70.0 11/25 1707 91 110/49 11/25 1706 89 100 11/25 1702 70.0 11/25 1702 80 97/49 11/25 1701 83 99 11/25 1700 98.2 11/25 1656 71.0 11/25 1656 113 101/57 99 11/25 1652 79.0 11/25 1652 88 109/55 11/25 1651 85 98 11/25 1446 99 99 11/25 1441 109 98 11/25 1436 99 98 11/25 1431 101 100 11/25 1426 102 98 11/25 1421 93 99 11/25 1418 98.1 11/25 1416 103 99 11/25 1411 103 99 11/25 1406 104 99 11/25 1401 97 99 Patient Weight Weight (lb): 175 Weight (oz): Weight (kg): 79.379 Physical Exam Neuro: Exam: alert, oriented x3, normal speech Abdomen: soft, no abnormal tenderness Incision site: well approximated edges, dry Uterus: involution appropriate, non-tender Lochia: normal Result Findings/Data: Laboratory Tests: 11/25 1500 Hematology WBC (4.80 - 10.80 x10 3/uL) 9.42 RBC (4.2 - 5.4 x10 6/uL) 3.71 L Hgb (12.0 - 16.0 G/DL) 10.3 L Hct (37 - 47 %) 31.1 L MCV (81 - 99 FL) 83.8 MCH (27 - 31 PG) 27.8 MCHC (33 - 37 G/DL) 33.1 RDW Coeff of Ino (11.5 - 14.5 %) 13.3 Plt Count (150 - 450 x10 3/uL) 236 MPV (7.4 - 10.4 FL) 11.1 H Neut % (Auto) (42 - 86 %) 77.9 Lymph % (Auto) (24 - 44 %) 13.[address] [place] % (Auto) (0.0 - 4.0 %) 7.4 H Eos % (Auto) (0.0 - 2.7 %) 0.2 Baso % (Auto) (0.0 - 0.5 %) 0.2 Eos # (Auto) (0.0 - 0.5 x10 3/uL) 0.02 Baso # (Auto) (0.0 - 0.2 x10 3/uL) 0.02 Abs Immat Gran (auto) (0.00 - 0.03 x10 3/uL) 0.04 H Absolute Neuts (auto) (1.8 - 7.7 x10 3/uL) 7.33 Absolute Lymphs (auto) (1.0 - 4.8 x10 3/uL) 1.31 Absolute Monos (auto) (0.0 - 0.8 x10 3/uL) 0.70 Absolute Nucleated RBC (0.0 - 0.2 X10 3/uL) 0.0 Immature Gran % (0.0 - 2.0 %) 0.4 Nucleated RBC % (0.0 - 0.0 %) 0.0 Diagnosis, Assessment Plan Diagnosis, Assessment Plan Problem List/A P: 1. Maternal care for low transverse scar from previous delivery 2. Onset (spontaneous) of labor after 37 completed weeks of gestation but before 39 completed weeks gestation, with delivery by (planned) section 3. Single live 4. 38 weeks gestation of Assessment: nml progress Plan: routine care, circumcision today (risks reviewed) at 0801 RPT #:[id number] END OF REPORT [facility] 2019-11-25 17:05:00 [id number] [place], [place] PATIENT NAME: ROSY BLACK ADMIT DATE: 11/25/19 ACCOUNT NO: [id number] ROOM NO: D.Y255 AGE: 24 REPORT TYPE: OPERATIVE REPORT SEX: F ADMITTING PHYSICIAN:Chip Palma MD ATTENDING PHYSICIAN:Chip Palma MD OPERATION DATE: 11/25/2019 PREOPERATIVE DIAGNOSIS: A 38 weeks 6 days gestation, previous section, planned repeat. The patient in labor. POSTOPERATIVE DIAGNOSIS: A 38 weeks 6 days gestation, previous section, planned repeat. The patient in labor. Delivered liveborn . PROCEDURE DONE: Repeat low transverse section. SURGEON: Chip Palma MD TOOLROOM KEEPER: Yohana Valdez MD ANESTHESIA: Spinal. ESTIMATED BLOOD LOSS: 500 mL. COUNTS: Correct. COMPLICATIONS: None. FINDINGS: A 7 pound 3 ounce male infant, Apgars 9 and 9, went to nursery. The uterus is grossly normal. There was a nuchal cord x1, reduced. Placenta appeared grossly normal. The uterus appeared normal except for the prior scar. Again, fallopian tubes and ovaries were grossly normal. DISPOSITION: To the recovery room stable. DESCRIPTION OF PROCEDURE: The patient was taken to the operating room, anesthesia placed. She was prepped for abdominal surgery. Transverse incision was made in the lower abdomen through the old scar, carried down to the fascia with a knife. Fascia was incised with a knife and dissected from the underlying rectus muscles using electrocautery and blunt dissection. Rectus muscles were in the midline using electrocautery and blunt dissection. Peritoneum was entered bluntly and extended with blunt dissection. Bladder was identified well out of surgical field. Transverse incision was made in the lower uterine segment through the old scar extended with blunt dissection. Clear fluid was noted. The infant was delivered. The cord was clamped and cut. The was handed to the chip unloader. Cord bloods were obtained. The placenta was manually extracted. The uterine cavity was cleansed. Hysterotomy incision was closed in a running-locking fashion with #1 Monocryl. Good hemostasis was assured. The pelvis was then irrigated of all blood and clots. Sponge, needle, and instrument count were then noted to be correct. Rectus muscles were PATIENT NAME: ROSY BLACK reapproximated towards the midline using 2-0 Monocryl in a running continuous fashion. The fascia was reapproximated with #1 PDS in a running continuous fashion. The skin was reapproximated with 2-0 Monocryl in a subcuticular fashion. Dermabond was applied over the incision. The patient was then transferred to the recovery room stable. Dictated By: Chip Palma MD WT: OP:DSONIA/BERT/LATOYA Conf#: [id number]#: [id number] Authenticated by Chip Palma MD On 12/01/2019 09:58:26 AM at 0958 PATIENT NAME: ROSY BLACK [facility] 2019-11-25 16:59:00 [facility] OB Delivery Note REPORT#:[id number] REPORT STATUS: Signed DATE:11/25/19 TIME: 1658 PATIENT: ROSY BLACK UNIT #: [id number] ROOM/BED: Y244-1 : 96 AGE: 24 SEX: F ATTEND: Chip Palma MD ADM AUTHOR: Chip Palma MD * ALL edits or amendments must be made on the electronic/computer document * OB Delivery Pre-delivery GBS status: GBS status: negative [place] evaluation at delivery: team Admission EGA (wks/days): 38 weeks (6 days) EGA at delivery (wks/days): 38 weeks (6 days) Baby A Information Baby A information Delivery date: 11/25/19 status: live born Wt of baby (lbs/oz): 7/3 Gender: male 1 minute: 9 5 minutes: 9 Presentation: vertex ABG details Baby A Cord blood gases: not collected Nuchal cord Baby A Nuchal cord: yes (loose and reduced) Delivery section Primary indication: elective repeat Priority: indicated (add on) : : declined Antibiotic prior to incision: 1 dose )(SCDs applied activated: Yes Uterine incision: low transverse Uterine scar: intact Consent: indication discussed, questions answered, pt consent to op delivery Mother's condition: mother stable Infant's condition: stable in nursery Operative Note-Full )(Start date: 11/25/19 )(Pre-procedure diagnosis: 38 weeks. Previous c/s desires repeat. Onset of labor. )(Post-procedure diagnosis: same as pre-procedure dx, delivered liveborn )(Procedures performed: Repeat low transverse section )(Primary Surgeon: Chip Palma MD )(Drivers License Examiner(s): Yohana Valdez MD )(Anesthesia: spinal anesthetic )(Operative findings: dictated )(Complications: none )( Estimated blood loss (ml): 500 )(Specimens removed/altered: placenta discarded Drain(s)/tube(s): nuñez Disposition: PACU Counts: Sponge count: correct Instrument count: correct Needle count: correct Dictation number: [id number] Blood Loss/Details Blood loss at delivery: <1000 ml at 1706 RPT #:[id number] END OF REPORT [facility] 2019-06-01 00:29:00 [facility] REPORT REPORT#:[id number] REPORT STATUS: Signed DATE:06/01/19 TIME: 0029 PATIENT: ROSY BLACK UNIT #: [id number] ROOM/BED: AGE: 23 SEX: F PCP PHYS: No Primary or Family Physician SERVICE AUTHOR: Jayy Gurrola MD * ALL edits or amendments must be made on the electronic/computer document * HPI- Female General Confirmed Patient Yes Patient Type New patient Initial Greet Date/Time 06/01/19 0025 Presentation Chief Complaint Vaginal bleeding Hx Obtained From Patient )( Sudden in Onset? Yes Onset Occurred Today Symptom Duration Since onset Progression since Onset Unchanged Context of Onset , 1st trimester Caused by No trauma by history Location Abdomen diffuse Radiation Does not radiate. Severity: Current Mild Associated with Reports: Abdominal pain. Denies: Nausea, Vomiting. Associated Other Pt denies other symptoms Relieved by Nothing Free Text HPI Notes Free Text HPI Notes 23 y/o F w/ no significant PMHx presents to the ED w/ c/o vaginal bleeding onset today. She states that she was having some abdominal cramping this morning. Patient reports that she is 13 weeks and 4 days , regular [facility] is Dr. Chip Palma. . Patient states she has not bled during her before. Patient states that her bleeding does not contain clots. Portions of this section were scribed by Dolly Lancaster on 06/01/19 at 0227 Review of Systems ROS Statements All systems rev neg except as marked. Focused Review of Systems Constitutional Denies: Chills, Fever. Ears/Nose/Throat Denies: Nasal congestion, Sore throat. GI Reports: Abdominal pain. Denies: Nausea, Vomiting. Female Reports: Vaginal bleeding - abnl. Denies: Dysuria. Musculoskeletal Denies: Back pain, Extremity pain. Skin Denies: Rash, Swelling. Neurologic Denies: Dizziness, Headache. Additional Review of Systems Eyes Denies: Blurred bilat, Visual loss bilat. Respiratory Denies: Shortness of breath, Wheezing. Cardiovascular Denies: Chest pain, Palpitations. Hematologic Reports: Bleeding. Denies: Bruising. Allergy/Immun Denies: Itching, Sneezing. Portions of this section were scribed by Dolly Lancaster on 06/01/19 at 0029 Past Medical History - Adult Stated Complaint BLEEDING Allergies Coded Allergies: No Known Allergies (09/01/12) Home Medications Reported Medications No Known Home Medications Review of Nursing Notes Rev avail, and agree Additional Medical History RA CHRONIC CONSTIPATION Alcohol Use Alcohol use Drug Use Denies recreational drugs Portions of this section were scribed by Dolly Lancaster on 06/01/19 at 0029 Physical Exam Vital Signs Vital Signs First Documented: Result Date Time Pulse Ox 100 05/31 2345 B/P 111/71 05/31 2345 B/P Mean 84 05/31 2345 O2 Delivery Room air 05/31 2345 Temp 36.7 05/31 234 Pulse 93 05/31 234 Resp 16 05/31 2345 Last Documented: Result Date Time Pulse Ox 100 05/31 2345 B/P 111/71 05/315 B/P Mean 84 05/315 O2 Delivery Room air 05/31 2345 Temp 36.7 05/31 234 Pulse 93 05/31 2345 Resp 16 05/31 2345 Review of Vital Signs Reviewed Focused PE General/Const General/Const Awake, Alert, No acute distress Resp/Chest Respiratory/Chest Atraumatic, Breath sounds NL, Breath sounds = bilat, No respiratory distress Cardiovascular Cardiovascular Heart rate NL, Regular rhythm, Heart sounds NL Abdomen/GI Abdomen/GI Atraumatic, Soft, Non-tender, No guarding, No rebound MS Back Back Atraumatic, Inspection NL Skin Skin Warm, Dry, Intact Genitourinary [employer] Blanket Wirer present Female Genitourinary Atraumatic, External genitalia NL, No foreign body, No adnexal mass, No uterine enlargement, No uterine mass, No lesions or rash Text/Dict Notes Minimal blood in the vault, use of vaginal speculum Additional PE MS Head Head Atraumatic, Normocephalic Eyes Eyes Atraumatic, PERRL, EOMI, No nystagmus Ears/Nose/Throat Ears/Nose/Throat Atraumatic, Airway patent, Mucous membranes moist, Pharynx NL MS Neck Neck Atraumatic, Supple, No meningismus MS Upper Extrem Upper Extremity/MS Atraumatic, Inspection NL MS Wrist/Hand Wrist/Hand Atraumatic, Inspection NL MS Lower Extrem Lower Ext/Pelvis/MS Atraumatic, Inspection NL MS Ankle/Foot Ankle/Foot Atraumatic, Inspection NL Neurologic Neurologic Oriented X3, Speech NL Psychiatric Psychiatric Affect NL, Mood NL, Not suicidal, Not homicidal Portions of this section were scribed by Dolly Lancaster on 06/01/19 at 0227 Interpretation Diagnostics Lab Results Interpretation Considerations Reviewed prior records Results Laboratory Tests 06/01/19 0053: [Embedded Image Not Available] Laboratory Tests: 06/01 06/01 0100 0053 Chemistry Sodium (133 - 145 MMOL/L) 136 Potassium (3.6 - 5.2 MMOL/L) 3.6 Chloride (100 - 108 MMOL/L) 104 Carbon Dioxide (22 - 32 MMOL/L) 22 BUN (6 - 20 MG/DL) 7 Creatinine (0.60 - 1.00 MG/DL) 0.65 Estimated GFR (MDRD) (71 - 165) 114 Glucose (65 - 99 MG/DL) 94 Calcium (8.7 - 10.5 MG/DL) 8.9 Total Bilirubin (0.0 - 1.0 MG/DL) 0.4 AST (15 - 37 Units/L) 14 L ALT (30 - 65 Units/L) 13 L Alkaline Phosphatase (50 - 136 Units/L) 69 Total Protein (6.4 - 8.2 G/DL) 6.6 Albumin (3.4 - 5.0 G/DL) 3.0 L Globulin (1.5 - 3.8 G/DL) 3.6 Albumin/Globulin Ratio (1.1 - 2.2) 0.8 L HCG, Quant (0 - 6) 76912 H Hematology WBC (4.80 - 10.80 x10 3/uL) 9.77 RBC (4.2 - 5.4 x10 6/uL) 3.85 L Hgb (12.0 - 16.0 G/DL) 12.8 Hct (37 - 47 %) 35.8 L MCV (81 - 99 FL) 93.0 MCH (27 - 31 PG) 33.2 H MCHC (33 - 37 G/DL) 35.8 RDW Coeff of Ion (11.5 - 14.5 %) 12.8 Plt Count (150 - 450 x10 3/uL) 260 MPV (7.4 - 10.4 FL) 9.8 Neut % (Auto) (42 - 86 %) 63.0 Lymph % (Auto) (24 - 44 %) 26.1 [place] % (Auto) (0.0 - 4.0 %) 9.3 H Eos % (Auto) (0.0 - 2.7 %) 0.9 Baso % (Auto) (0.0 - 0.5 %) 0.4 Eos # (Auto) (0.0 - 0.5 x10 3/uL) 0.09 Baso # (Auto) (0.0 - 0.2 x10 3/uL) 0.04 Abs Immat Gran (auto) (0.00 - 0.03 x10 3/uL) 0.03 Absolute Neuts (auto) (1.8 - 7.7 x10 3/uL) 6.15 Absolute Lymphs (auto) (1.0 - 4.8 x10 3/uL) 2.55 Absolute Monos (auto) (0.0 - 0.8 x10 3/uL) 0.91 H Absolute Nucleated RBC (0.0 - 0.2 X10 3/uL) 0.0 Immature Gran % (0.0 - 2.0 %) 0.3 Nucleated RBC % (0.0 - 0.0 %) 0.0 Urines Ur Spec Description Clean Catch Urine Color (YELLOW) Yellow Urine Appearance (CLEAR) CLOUDY Urine pH (5.5 - 7.0) 7.5 H Ur Specific [place] (1.001 - 1.035) 1.016 Urine Protein (NEGATIVE mg/dL) NEGATIVE Urine Glucose (UA) (NEGATIVE mg/dL) NORMAL Urine Ketones (NEGATIVE mg/dL) NEGATIVE Urine Blood (NEGATIVE) 2+ Urine Nitrite (NEGATIVE) NEGATIVE Urine Bilirubin (NEGATIVE) NEGATIVE Urine Urobilinogen (NORMAL mg/dL) 2.0 Ur Leukocyte Esterase (NEGATIVE) NEGATIVE Urine RBC (NONE SEEN #/HPF) 0-2 Urine WBC (<10 #/hpf) < 10 Amorphous Sediment (None seen #/lpf) MODERATE Urine Comment VOLUME 10-12 ML Recent Impressions: ULTRASOUND - US PREG 1ST TRIMTR 06/01 011 Report Impression - Status: SIGNED Entered: 06/01/2019 0200 IMPRESSION: 1. Viable intrauterine gestation at estimated gestational age 13 weeks 1 day by crown-rump length. This compares with reported gestational age of 13 weeks 4 days by LMP. 2. Probable partial placenta previa. Impression By: [email or web address] - Ronald Teran MD [employer] Portions of this section were scribed by Dolly Lancaster on 06/01/19 at 0227 Re-Evaluation MDM Re-Evaluation/Progress Re-Evaluation/Progress Text/Dict Note Discussed lab results and informed patient we are currently waiting on US results. Time of Re-Eval 0153 Re-Eval Status Unchanged Plan Post Re-Eval Plan observe Portions of this section were scribed by Dolly Lancaster on 06/01/19 at 0153 Patient Discharge Departure Vital Signs/Condition Vital Signs First Documented: Result Date Time Pulse Ox 100 05/31 2345 B/P 111/71 / 2345 B/P Mean 84 / 2345 O2 Delivery Room air 05/31 2345 Temp 36.7 / 2345 Pulse 93 09/ 2345 Resp 16 05/31 2345 Last Documented: Result Date Time Pulse Ox 100 / 2345 B/P 111/71 / 2345 B/P Mean 84 / 2345 O2 Delivery Room air 05/31 2345 Temp 36.7 / 2345 Pulse 93 / 2345 Resp 16 05/31 2345 All vital signs available at the time of this entry have been reviewed. Condition Stable Clinical Impression Clinical Impression Primary Impression: Vaginal bleeding affecting early Secondary Impressions: Placenta previa Disposition Decision Discharge )( Discharged to Home Yes )( Time 0226 )( Date 06/01/19 Discharge/Care Plan Counseled Regarding Diagnosis, Lab results, Imaging studies, Need for follow-up, When to return to ED Discharge Note I have spoken with the patient and/or caregivers. I have explained the patient's condition, diagnoses and treatment plan based on the information available to me at this time. I have answered the patient's and/or caregiver's questions and addressed any concerns. The patient and/or caregivers have as good an understanding of the patient's diagnosis, condition and treatment plan as can be expected at this point. The vital signs have been stable. The patient's condition is stable and appropriate for discharge from the emergency department. The patient will pursue further outpatient evaluation with the primary care physician or other designated or consulting physician as outlined in the discharge instructions. The patient and/or caregivers are agreeable to this plan of care and follow-up instructions have been explained in detail. The patient and/or caregivers have received these instructions in written format and have expressed an understanding of the discharge instructions. The patient and/or caregivers are aware that any significant change in condition or worsening of symptoms should prompt an immediate return to this or the closest emergency department or a call to 911. Supervising Physician Note Scribe Statement Dolly Lancaster, 06/01/1938, scribing for and in the presence of Dr. Gurrola. Signed By: Dolly Lancaster, 06/01/1938 Provider Scribed Statement I personally performed the services described in this documentation and reviewed the documentation that was dictated to the scribe(s) in my presence, and it accurately records my words and actions. Jayy Gurrola, 06/01/19 Portions of this section were scribed by Dolly Lancaster on 06/01/19 at 0222 at 0236 RPT #:[id number] END OF REPORT [facility]
--- NOTE | 2024-11-29 21:16 | RAD REPORT ---
EXAM: CT brain without contrast HISTORY: HEADACHE COMPARISON: None TECHNIQUE: Multiple contiguous axial images were obtained and a CT of the brain without contrast. Sag ittal and coronal reformats were performed. One or more of the following dose reduction techniques were used: Automated exposure control, adjust ment of the mA and/or kV according to patient size, and/or iterative reconstruction. FINDINGS: No evidence of hydrocephalus, intracranial hemorrhage, or extra-axial fluid collection. The brain is normal in morphology. No evidence of midline shift or areas of brain edema. The calvarium is intact. The visualized paranasal sinuses and mastoid air cells are essentially clear . IMPRESSION: No evidence of acute intracranial abnormality.
[2024-11-29] MEDS ORDERED: KETOROLAC 30 MG/ML INJ ONE (22:26)
[2024-11-29] MEDS ORDERED: NA CHLORIDE 0.9% 500 ML ONE (22:26)
[2024-11-29] MEDS ORDERED: PROMETHAZINE INJ 25 MG/ML AMP ONE (22:26)
[2024-11-29 22:34] LABS: Absolute Basophils 0.1 K/uL (0-0.5); Absolute Eosinophils 0.2 K/uL (0-0.5); Absolute Lymphocytes (CBC) 1.6 K/uL (0.7-4.9); Absolute Monocytes 0.8 K/uL (0.1-1.3); Absolute Neutrophil 5.3 K/uL (1.8-8.0); Basophils % 0.7 % (0-1.3); Eosinophils % 2.2 % (0-4.4); Hematocrit 40.5 % (36.0-45.0); Hemoglobin 14.2 g/dL (12.0-15.0); Lymphocytes % 20.4 % (15.3-44.8); MCH 32.9 pg (27.0-35.0); MCHC 35.1 g/dL (32.0-36.0); MCV 93.7 fL (80-100); MPV 8.3 fL (7.6-11.3); Monocytes % 10.3 % (3.3-12.3); Neutrophils % 66.4 % (41.7-73.7); Nucleated Red Blood Cells % 0.2 % (0-0); Platelets 282 thou/uL (152-406); RBC Red Blood Cell Count 4.32 M/uL (3.86-4.86); Red Cell Distribution Width 12.4 % (12.1-15.2)
[2024-11-29 22:51] LABS: Albumin 3.5 g/dL (3.4-5.0); Albumin/Globulin Ratio 0.9 (1.1-1.8); Anion Gap 6.3 mEq/L (5.0-15.0); Bilirubin Total 0.4 mg/dL (0.2-1.0); Globulin 3.7 g/dL (2.3-3.5); Potassium 3.3 mEq/L (3.5-5.1); Protein, Total 7.2 g/dL (6.4-8.2)
--- NOTE | 2024-11-29 23:13 | EDPHYS ---
Physician Documentation [facility] Name: Rosy David Age: 29 yrs Sex: Female : 1995 Arrival Date: 11/29/2024 Time: 19:35 Bed 5 Private MD: ED Physician Vaishnavi Oakes HPI: 11/29 22:30 This 29 yrs old Female presents to ER via Ambulatory with complaints of sp3 Headache, Weakness, Dizziness. 22:30 29-year-old female with history of sleep apnea presents with frontal headache radiating sp3 around to the back and then into her muscles. No prior history of chronic headaches reported. She denies any changes in vision, trauma, fever, neck stiffness, sinus symptoms, URI symptoms, chest pain, shortness of breath, other neurological complaints, focal neurological deficits, or any other signs or symptoms on ROS at this time.. 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 - Infectious Disease History:: Denies. - Social history:: Smoking status: Patient denies any tobacco usage or history of. ROS: 22:33 Constitutional: Negative for fever, chills, and weight loss, Eyes: Negative for injury, sp3 pain, redness, and discharge, ENT: Negative for injury, pain, and discharge, Neck: Negative for injury, pain, and swelling, Cardiovascular: Negative for chest pain, palpitations, and edema, Respiratory: Negative for shortness of breath, cough, wheezing, and pleuritic chest pain, Abdomen/GI: Negative for abdominal pain, nausea, vomiting, diarrhea, and constipation, Back: Negative for injury and pain, MS/Extremity: Negative for injury and deformity, Skin: Negative for injury, rash, and discoloration, Psych: Negative for depression, anxiety, suicide ideation, homicidal ideation, and hallucinations, Allergy/Immunology: Negative for hives, rash, and allergies, Endocrine: Negative for neck swelling, polydipsia, polyuria, polyphagia, and marked weight changes, Hematologic/Lymphatic: Negative for swollen nodes, abnormal bleeding, and unusual bruising, 22:33 All other systems are negative, Exam: 22:34 Constitutional: This is a well developed, well nourished patient who is awake, alert, sp3 and in no acute distress. Head/Face: Normocephalic, atraumatic. Eyes: Pupils equal round and reactive to light, extra-ocular motions intact. Lids and lashes normal. Conjunctiva and sclera are non-icteric and not injected. Cornea within normal limits. Periorbital areas with no swelling, redness, or edema. ENT: Nares patent. No nasal discharge, no septal abnormalities noted. External auditory canals are clear. Oropharynx with no redness, swelling, or masses, exudates, or evidence of obstruction, uvula midline. Mucous membranes moist. Neck: Trachea midline, no thyromegaly or masses palpated, and no cervical lymphadenopathy. Supple, full range of motion without nuchal rigidity, or vertebral point tenderness. No Meningismus. Chest/axilla: Normal chest wall appearance and motion. Nontender with no deformity. No lesions are appreciated. Cardiovascular: Regular rate and rhythm with a normal S1 and S2. No gallops, murmurs, or rubs. Normal PMI, no JVD. No pulse deficits. Respiratory: Lungs have equal breath sounds bilaterally, clear to auscultation and percussion. No rales, rhonchi or wheezes noted. No increased work of breathing, no retractions or nasal flaring. Abdomen/GI: Soft, non-tender, with normal bowel sounds. No distension or tympany. No guarding or rebound. No evidence of tenderness throughout. Back: No spinal tenderness. No costovertebral tenderness. Full range of motion. Skin: Warm, dry with normal turgor. Normal color with no rashes, no lesions, and no evidence of cellulitis. MS/ Extremity: Pulses equal, no cyanosis. Neurovascular intact. Full, normal range of motion. Neuro: Awake and alert, GCS 15, oriented to person, place, time, and situation. Cranial nerves II-XII grossly intact. Motor strength 5/5 in all extremities. Sensory grossly intact. Cerebellar exam normal. Normal gait. Psych: Awake, alert, with orientation to person, place and time. Behavior, mood, and affect are within normal limits. Vital Signs: 19:51 BP 117 / 80; Pulse 79; Resp 16; Temp 98.4; Pulse Ox 99% ; Weight 68.04 kg; Height 5 ft. bm8 1 in. ; Pain 10/10; 22:30 BP 116 / 75; Pulse 82; Resp 17 S; Pulse Ox 99% on R/A; ha1 23:26 BP 110 / 65; Pulse 80; Resp 17 S; Temp 97; Pulse Ox 99% on R/A; ha1 19:51 Body Mass Index 28.34 (68.04 kg, 154.94 cm) bm8 19:51 Pain Scale: Adult bm8 MDM: 19:57 Medical Screening Exam initiated sp3 22:35 Data reviewed: vital signs, nurses notes, lab test result(s), radiologic studies. ED sp3 course: 29-year-old female with new headache severe in nature. Differential diagnosis includes idiopathic headache, migraine headache, cluster headache, sinusitis, other intracranial pathology, mass or bleeding, viral illness, among others. Workup will include CT scan of the head, general labs and supportive care with IV fluids, pain medication and antiemetics. Patient is driving home so we will start nonnarcotic first. Ketorolac and Phenergan have been ordered. Disposition pending workup and patient course. CT scan of the head is back already and shows no abnormality.. 23:12 ED course: Patient feels much improved with medication. Will safely discharge her home sp3 at this time on the same meds.. 11/29 22:09 Order name: CBC with Diff; Complete Time: 22:51 sp3 11/29 22:09 Order name: CMP; Complete Time: 22:51 sp3 11/29 20:53 Order name: CT Head Brain wo Cont; Complete Time: 21:18 sp3 11/29 22:09 Order name: IV Saline Lock; Complete Time: 22:32 sp3 11/29 22:09 Order name: Labs collected and sent; Complete Time: 22:32 sp3 Administered Medications: 22:30 Drug: Ketorolac IVP 30 mg IVP once Route: IVP; Site: right antecubital; ha1 23:00 Follow up: Response: No adverse reaction; Marked relief of symptoms; Pain is decreased ha1 22:32 Drug: NS 0.9% IV 500 ml 500 ml IV at 1 bolus once; to be given as a bolus over 30 ha1 minutes Volume: 500 ml; Route: IV; Rate: 1 bolus; Site: right antecubital; 23:28 Follow up: Response: No adverse reaction; IV Status: Completed infusion; IV Intake: ha1 1000ml 22:33 Drug: Promethazine IVP 12.5 mg IVP once Route: IVP; Site: right antecubital; ha1 23:00 Follow up: Response: No adverse reaction; Marked relief of symptoms; Nausea is decreasedha1 Disposition Summary: 11/29/24 23:12 Discharge Ordered Notes: Location: Home sp3 Condition: Stable sp3 Diagnosis - Headache sp3 Followup: sp3 - With: Private Physician - When: Upon discharge from the Emergency Department - Reason: Continuance of care Discharge Instructions: - Discharge Summary Sheet sp3 - General Headache Without Cause sp3 Forms: - Medication Reconciliation Form sp3 - Antibiotic Education sp3 - Prescription Opioid Use sp3 - Patient Portal Instructions sp3 - Leadership Thank You Letter sp3 Prescriptions: - Diclofenac Sodium 75 mg Oral Tablet Sustained Release - take 1 tablet ORAL route 2 times per day; 30 tablet; Refills: 0, Product sp3 Selection Permitted Signatures: Dispatcher [employer] Vaishnavi Louis MD MD sp3 Bria Davila, RN RN ha1 Abraham Givens RN RN bm8
--- NOTE | 2024-11-29 23:13 | ER ---
Nurse's Notes [facility] Name: Rosy David Age: 29 yrs Sex: Female : 1995 Arrival Date: 11/29/2024 Time: 19:35 Bed 5 Private MD: Diagnosis: Headache Presentation: 11/29 19:51 Chief complaint: Patient states: bad head and generalized weakness all day. Coronavirus bm8 screen: At this time, the client does not indicate any symptoms associated with coronavirus-19. Ebola Screen: Patient negative for fever greater than or equal to 101.5 degrees Fahrenheit, and additional compatible Ebola Virus Disease symptoms Patient denies exposure to infectious person. Patient denies travel to an Ebola-affected area in the 21 days before illness onset. No symptoms or risks identified at this time. Initial Sepsis Screen: Does the patient meet any 2 criteria? No. Patient's initial sepsis screen is negative. Does the patient have a suspected source of infection? No. Patient's initial sepsis screen is negative. Risk Assessment: Do you want to hurt yourself or someone else? Patient reports no desire to harm self or others. Onset of symptoms was November 29, 2024 at 08:00. 19:51 Method Of Arrival: Ambulatory bm8 19:51 Acuity: LUCY 3 bm8 Triage Assessment: 19:52 Headache History: Denies prior headaches. General: Appears in no apparent distress. bm8 uncomfortable, Behavior is calm, cooperative, appropriate for age. Pain: Complains of pain in head Pain currently is 10 out of 10 on a pain scale. Quality of pain is described as aching, throbbing, Pain began 1 day ago. Also complains of decreased appetite, nausea, inability to concentrate. EENT: No deficits noted. No signs and/or symptoms were reported regarding the EENT system. Neuro: No deficits noted. Level of Consciousness is awake, alert, obeys commands, Oriented to person, place, time, situation, Appropriate for age Reports headache frontal area, occipital area. Cardiovascular: Denies chest pain, Heart tones S1 S2 present. Respiratory: Airway is patent Trachea midline Respiratory effort is even, unlabored, Respiratory pattern is regular, symmetrical, Breath sounds are clear bilaterally. GI: Reports nausea. 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 - Infectious Disease History:: Denies. - Social history:: Smoking status: Patient denies any tobacco usage or history of. Screenin:26 [facility] [place] ED Fall Risk Assessment (Adult) History of falling in the last 3 months, ha1 including since admission No falls in past 3 months (0 pts) Confusion or Disorientation No (0 pts) Intoxicated or Sedated No (0 pts) Impaired Gait No (0 pts) Mobility Assist Device Used No (0 pt) Altered Elimination No (0 pt) Score/Fall Risk Level 0 - 2 = Low Risk Oriented to surroundings, Maintained a safe environment, Educated pt \T\ family on fall prevention, incl call for assistance when getting out of bed, Hourly rounding (assess needs \T\ fall precautionary measures) done. Abuse screen: Denies threats or abuse. Denies injuries from another. Nutritional screening: No deficits noted. Tuberculosis screening: No symptoms or risk factors identified. Assessment: 21:30 General: Appears uncomfortable, Behavior is calm, cooperative. Pain: Complains of pain ha1 in headache Pain currently is 9 out of 10 on a pain scale. Quality of pain is described as throbbing. Neuro: Level of Consciousness is awake, alert, obeys commands, Oriented to person, place, time, situation, Reports dizziness, headache photophobia weakness. Cardiovascular: Capillary refill < 3 seconds Patient's skin is warm and dry. Respiratory: Airway is patent Respiratory effort is even, unlabored, Respiratory pattern is regular, symmetrical. GI: Abdomen is round non-distended, Bowel sounds present X 4 quads. Abd is soft and non tender X 4 quads. Reports nausea. : No signs and/or symptoms were reported regarding the genitourinary system. Derm: Skin is pink, warm \T\ dry. 22:30 Reassessment: Patient and/or family updated on plan of care and expected duration. Pain ha1 level reassessed. Patient is alert, oriented x 3, equal unlabored respirations, skin warm/dry/pink. pain 4 Patient states feeling better. Patient states symptoms have improved. 23:25 Reassessment: Patient and/or family updated on plan of care and expected duration. Pain ha1 level reassessed. Patient is alert, oriented x 3, equal unlabored respirations, skin warm/dry/pink. Patient denies pain at this time. Patient states feeling better. Patient states symptoms have improved. Vital Signs: 19:51 BP 117 / 80; Pulse 79; Resp 16; Temp 98.4; Pulse Ox 99% ; Weight 68.04 kg; Height 5 ft. bm8 1 in. ; Pain 10/10; 22:30 BP 116 / 75; Pulse 82; Resp 17 S; Pulse Ox 99% on R/A; ha1 23:26 BP 110 / 65; Pulse 80; Resp 17 S; Temp 97; Pulse Ox 99% on R/A; ha1 19:51 Body Mass Index 28.34 (68.04 kg, 154.94 cm) bm8 19:51 Pain Scale: Adult bm8 ED Course: 19:45 Patient arrived in ED. [email or web address] 19:47 Vaishnavi Oakes MD is Attending Physician. sp3 19:52 Triage completed. bm8 19:52 Arm band placed on right wrist. bm8 21:12 CT Head Brain wo Cont In Process Unspecified. EDMS 22:00 Patient has correct armband on for positive identification. Placed in gown. Bed in low ha1 position. Call light in reach. Side rails up X 1. Provided Education on: plan of care . 22:13 Bria Davila, RN is Primary Nurse. ha1 22:20 No provider procedures requiring assistance completed. Inserted saline lock: 22 gauge ha1 in right antecubital area, using aseptic technique. Blood collected. Flushed with 10 mL NS. 22:32 CBC with Diff Sent. ha1 22:32 CMP Sent. ha1 23:28 IV discontinued, intact, bleeding controlled, No redness/swelling at site. Pressure ha1 dressing applied. Administered Medications: 22:30 Drug: Ketorolac IVP 30 mg IVP once Route: IVP; Site: right antecubital; ha1 23:00 Follow up: Response: No adverse reaction; Marked relief of symptoms; Pain is decreased ha1 22:32 Drug: NS 0.9% IV 500 ml 500 ml IV at 1 bolus once; to be given as a bolus over 30 ha1 minutes Volume: 500 ml; Route: IV; Rate: 1 bolus; Site: right antecubital; 23:28 Follow up: Response: No adverse reaction; IV Status: Completed infusion; IV Intake: ha1 1000ml 22:33 Drug: Promethazine IVP 12.5 mg IVP once Route: IVP; Site: right antecubital; ha1 23:00 Follow up: Response: No adverse reaction; Marked relief of symptoms; Nausea is decreasedha1 Medication: 23:28 VIS not applicable for this client. ha1 Intake: 23:28 IV: 1000ml; Total: 1000ml. ha1 Outcome: 23:12 Discharge ordered by . sp3 23:28 Discharged to home ambulatory, ha1 23:28 Condition: stable 23:28 Discharge instructions given to patient, Instructed on discharge instructions, follow up and referral plans. medication usage, Demonstrated understanding of instructions, follow-up care, medications, Prescriptions given X 1, 23:30 Patient left the ED. ha1 Signatures: Dispatcher [employer] EDMS Vaishnavi Oakes MD MD sp3 Natalie Steen [email or web address] Bria Davila, RN RN ha1 Abraham Givens RN RN bm8
[2024-11-30 00:15] VITALS: O2SAT 99
[2024-11-30 00:19] VITALS: BP 110/65; TEMP 97
== END 2024-11-29 23:30 | disposition home or self-care (01) ==
LOC: ER 19:35
DX: R51.9 Headache, unspecified (principal)
CPT/HCPCS: 36415; 70450; 80053; 85025; 96361; 96374; 96375; 99284; J2550; J7040